=== PATIENT | female | born 1960 | race American Indian/Alaskan Native ===

== ENCOUNTER 2017-01-30 14:05 | Emergency (ER) | payer OTHER ==
[2017-01-30 14:21] VITALS: RESP 18
[2017-01-30] MEDS ORDERED: Sodium Chloride 0.9% 1,000 ML IV ONE (14:27)
[2017-01-30] MEDS ORDERED: Sodium Chloride 0.9% 1,000 ML ONE (14:37)
[2017-01-30 14:39] LABS: BASO % 0.2 % (0.0-2.0); HEMATOCRIT 28.2 % (34.0-47.0); LYMPH # 0.3 K/uL (1.0-4.3); LYMPH % 1.8 % (20.0-40.0); MEAN CORPUSCULAR HEMOGLOBIN 17.6 pg (27.0-31.0); MEAN CORPUSCULAR HGB CONC 28.9 g/dL (33.0-37.0); MEAN PLATELET VOLUME 8.5 fL (7.2-11.7); MONO # 0.3 K/uL (0.0-0.8); PLATELET COUNT 385 K/uL (130-400); RED CELL DISTRIBUTION WIDTH 23.5 % (11.5-14.5)
[2017-01-30 14:48] LABS: CHLORIDE 105 mmol/L (98-107)
[2017-01-30 14:49] LABS: POTASSIUM 3.1 mmol/L (3.6-5.2); SODIUM 136 mmol/L (132-148)
[2017-01-30 14:52] LABS: ALKALINE PHOSPHATASE 72 U/L (38-126); ALT/SGPT 15 U/L (9-52); AST/SGOT 17 U/L (14-36); BILIRUBIN,TOTAL 0.6 mg/dL (0.2-1.3); BLOOD UREA NITROGEN 8 mg/dL (7-17); CARBON DIOXIDE 23 mmol/L (22-30); GFR AFRICAN-AMERICAN > 60; GLUCOSE,RANDOM 117 mg/dL (65-105); TOTAL PROTEIN 7.5 g/dL (6.3-8.3)
[2017-01-30 14:53] LABS: CALCIUM 8.8 mg/dl (8.6-10.4)
[2017-01-30 14:57] LABS: INR 1.2
--- NOTE | 2017-01-30 15:10 | C.PDOC ---
History Of Present Illness 56 y/o female presents to ED with c/o generalized weakness in her legs, leg pain , back pain, and chills since this morning. Patient reports history of anemia and takes OTC iron. Patient denies chest pain, SOB, cough, runny nose, sore throat, vomiting or diarrhea. Time Seen by Provider: 01/30/17 14:16 Chief Complaint (Nursing): Medical Clearance History Per: Patient History/Exam Limitations: no limitations Current Symptoms Are (Timing): Still Present Severity: Mild Past Medical History Reviewed: Historical Data, Nursing Documentation, Vital Signs Vital Signs: Last Vital Signs Temp 98.9 F 01/30/17 16:55 Pulse 84 01/30/17 16:55 Resp 18 01/30/17 16:55 BP 122/74 01/30/17 16:55 Pulse Ox 97 01/30/17 16:55 - Medical History PMH: Anemia (FE DEFICIENT) Family History: States: No Known Family Hx - Social History Hx Alcohol Use: No Hx Substance Use: No - Immunization History Hx Tetanus Toxoid Vaccination: No Hx Influenza Vaccination: No Hx Pneumococcal Vaccination: No Review Of Systems Except As Marked, All Systems Reviewed And Found Negative. Constitutional: Positive for: Weakness. Negative for: Fever, Chills Cardiovascular: Negative for: Chest Pain Respiratory: Negative for: Cough, Shortness of Breath, Wheezing Gastrointestinal: Negative for: Nausea, Vomiting, Abdominal Pain Musculoskeletal: Positive for: Back Pain, Leg Pain (bilateral) Skin: Negative for: Rash Physical Exam - Physical Exam Appears: Non-toxic, Other (comfortable, speaking in full sentences) Skin: Normal Color, Warm, Dry, No Rash Head: Normacephalic Oral Mucosa: Moist Chest: Symmetrical Cardiovascular: Rhythm Regular Respiratory: Normal Breath Sounds, No Rales, No Rhonchi, No Wheezing Gastrointestinal/Abdominal: Normal Exam, Bowel Sounds, Soft, No Tenderness, No Guarding, No Rebound Back: Normal Inspection Extremity: Normal ROM, No Tenderness, No Pedal Edema, No Calf Tenderness, No Swelling Extremity: Bilateral: Normal Color And Temperature Pulses: Left Dorsalis Pedis: Normal, Right Dorsalis Pedis: Normal Neurological/Psych: Oriented x3 ED Course And Treatment - Laboratory Results Result Diagrams: 01/30/17 14:34 01/30/17 14:34 O2 Sat by Pulse Oximetry: 100 (RA) Pulse Ox Interpretation: Normal - Radiology CXR: Interpreted by Me, Viewed By Me CXR Interpretation: No: No Acute Disease, Infiltrates Progress Note: Blood work, CXR, UA, UPreg ordered and reviewed. IV NS bolus given. Reevaluation Time: 16:40 Reassessment Condition: Improved (On reassessment, patient reports that she is feeling much better after IV fluids. Vitals have improved. Patient offered admission for symptomatic anemia, but she states she does not want to be admitted, would like to be discharged home. Patient given Rx for higher dose daily iron + colace, and she was instructed to follow up with PMD/clinic in 1-2 days. She understands she should return to ED immediately if symptoms worsen.) Disposition Counseled Patient/Family Regarding: Studies Performed, Diagnosis, Need For Followup, Rx Given - Disposition Referrals: [facility] [Outside] Disposition: HOME/ ROUTINE Disposition Time: 16:40 Condition: STABLE Additional Instructions: FOLLOW UP WITH YOUR DOCTOR/CLINIC IN 1-2 DAYS TAKE TWO TABS IRON DAILY DRINK PLENTY OF FLUIDS RETURN TO ER IF SYMPTOMS WORSEN Prescriptions: Docusate [Colace] 100 mg PO DAILY #30 cap Ferrous Sulfate [Ferosul] 325 mg PO DAILY #60 tablet Instructions: Iron Deficiency Anemia (ED) Print Language: YEMENI - POA Present On Arrival: None - Clinical Impression Clinical Impression: Iron deficiency anemia - Scribe Statement The provider has reviewed the documentation as recorded by the Blade Greer Provider Attestation: All medical record entries made by the Blade were at my direction and personally dictated by me. I have reviewed the chart and agree that the record accurately reflects my personal performance of the history, physical exam, medical decision making, and the department course for this patient. I have also personally directed, reviewed, and agree with the discharge instructions and disposition.
[2017-01-30 15:34] LABS: NEUTROPHIL 96 % (50-75); TOTAL CELLS COUNTED 100
[2017-01-30 15:42] LABS: RBC URINE < 1 /hpf (0-3); URINE BILIRUBIN NEGATIVE (NEGATIVE); URINE BLOOD NEGATIVE (NEGATIVE); URINE COLOR Colorless (YELLOW); URINE GLUCOSE (UA) NORMAL (Normal); URINE KETONE NEGATIVE (NEGATIVE); URINE LEUKOCYTE ESTERASE NEG Leu/uL (Negative); URINE PROTEIN NEGATIVE (NEGATIVE); URINE UROBILINOGEN NORMAL mg/dL (0.2-1.0); WBC URINE < 1 /hpf (0-5)
--- NOTE | 2017-01-30 16:33 | RAD ---
PROCEDURE: CHEST RADIOGRAPH, 1 VIEW HISTORY: FEVER/CHILLS COMPARISON: None available. FINDINGS: LUNGS: Clear. PLEURA: No pneumothorax or pleural fluid seen. CARDIOVASCULAR: Normal. OSSEOUS STRUCTURES: No significant abnormalities. VISUALIZED UPPER ABDOMEN: Normal. OTHER FINDINGS: None. IMPRESSION: No active disease.
[2017-01-30 16:56] VITALS: BP 122/74; PULSE 84; TEMP 98.9
[2017-02-04 14:37] VITALS: O2SAT 100
== END 2017-01-30 16:55 | disposition home or self-care (01) ==
LOC: C.ER 14:05
DX: D50.9 Iron deficiency anemia, unspecified (principal)
CPT/HCPCS: 71010; 80053; 81001; 84703; 85025; 85610; 85730; 86850; 86900; 99285; J7040